=== PATIENT | female | born 1960 | race Caucasian/White ===

== ENCOUNTER → 2020-12-10 | Day surgery (SDC) | payer OTHER ==
[2020-12-09 12:21] VITALS: BP 127/89
[~2020-12-10] VITALS: Ht 157.5 cm; Wt 145.0 kg
[~2020-12-10] MED LIST: AMLO-186 PO; AZEL6DRO2 OP; FAMO20TA5 PO; FERR240T11 PO; FEXO180T16 PO; FLUT15.812 NS; LEVO5TAB29 PO; LIDOCAINE 2% PF 5 ML VIAL. ONE; MELA10TA2 PO; PROPOFOL 10 MG/ML (20ML) VIAL. IV ONE; ROPI3TAB PO; SERT50TA PO; SUCR1TAB PO; TIZA4TAB2 PO; TOPI100T42 PO; ZOLP3.5T2 SL
[2020-12-10] MEDS: IV RINGERS,LACTATED 1000ML 1,000 ML IV SCH ×2 (08:00→08:01)
[2020-12-10 09:55] VITALS: BP 103/59
--- NOTE | 2020-12-10 10:16 | PREOP HP ---
DATE OF SERVICE: 12/10/2020 REQUESTING PHYSICIAN: Dr. Bill Garcia. PRIMARY CARE PHYSICIAN: Dr. Bill Garcia. REASON FOR PROCEDURE: History of polyps. HISTORY OF PRESENT ILLNESS: This is a 60-year-old female who presents for colonoscopy and upper endoscopy. She has reflux and has a history of polyps. PAST MEDICAL HISTORY: Reflux and polyps. FAMILY HISTORY: Negative for colon cancer. SOCIAL HISTORY: No tobacco, alcohol or IV drug abuse. MEDICATIONS: MAR reviewed. REVIEW OF SYSTEMS: Review of 13-point review of systems was done, it is positive as per HPI and otherwise negative. PHYSICAL EXAMINATION: VITAL SIGNS: She is afebrile and her vital signs are stable. GENERAL: She is a well-developed, well-nourished female in no apparent distress. HEENT: Oropharynx is clear. CARDIOVASCULAR: S1, S2. LUNGS: Clear. ABDOMEN: Normoactive bowel sounds, soft, nontender, nondistended. EXTREMITIES: No edema. NEUROLOGIC: Awake, alert, oriented x 3. ASSESSMENT AND PLAN: 1. Heartburn. 2. Colorectal cancer screening for history of colon polyps. [facility]IS[facility] [place]: Munira TID: [id number]
--- NOTE | 2020-12-11 17:11 | PATHOLOGY ---
[facility] Accession Number: [id number] . 01 Material submitted: . PART A: small bowel - SMALL BOWEL BIOPSY PART B: stomach - ANTRAL GASTRIC AND BODY BIOPSY PART C: esophagus - DISTAL ESOPHAGUS BIOPSY. Modifiers: distal . 01 Clinical history: . SCREENING,HX OF POLYPS GERD EGD . 02 Diagnosis: A. Small bowel biopsies: - No significant pathologic abnormalities. . B. Gastric biopsies, gastric antrum and gastric body: - Congestion and focal slight chronic inflammation. . C. Esophageal biopsies, distal esophagus: - Reflux esophagitis with focal ulceration and acute inflammation. [facility] 12/11/2020 1408 Local . 02 Comment: Sections of the small bowel biopsy reveal segments of duodenal and small intestine mucosa. Where best oriented, the mucosal villi show no sprue-like changes or significant inflammatory changes. . Sections of the gastric biopsy reveal segments of gastric antral and gastric body mucosa showing congestion and focal slight chronic inflammation. There is also a small segment of duodenal mucosa present. A properly controlled immunoperoxidase stain for Helicobacter is negative for Helicobacter organisms. . Sections of the distal esophageal biopsy reveal segments of focally tangentially oriented hyperplastic squamous esophageal mucosa showing chronic inflammation. There is a biopsy segment consisting of acute inflammatory exudate and granulation tissue consistent with ulcer. There is also a segment of gastric mucosa showing congestion and mild chronic inflammation. The findings are consistent with reflux esophagitis with ulceration. There is no evidence of Morales's change, dysplasia, or malignancy. ([facility]/db; 12/11/2020) . Special stain performed: Immunoperoxidase stain for Helicobacter on B1 . 02 Electronically signed: . Moshe Landrum MD, Pathologist NPI- [id number] . 01 Gross description: . A. The specimen is received in formalin, labeled "Saller, Sheri, small bowel biopsy" received as multiple fragments of soft ceja tissue measuring up to 0.3 cm. Entirely submitted in A1. . B. The specimen is received in formalin, labeled "Saller, Sheri, antral biopsy gastric and body" received as multiple fragments of soft ceja tissue measuring up to 0.3 cm. Entirely submitted in B1. . C. The specimen is received in formalin, labeled "Saller, Sheri, distal esophagus biopsy" received as multiple fragments of soft ceja tissue measuring up to 0.3 cm. Entirely submitted in C1. ([facility]; 12/10/20) [facility] 12/11/2020 1409 Local . 02 Pathologist provided ICD-10: K29.50, K21.00, K22.10, K20.90 . 02 CPT . 576269, [id number], [id number], [id number] Specimen Comment: A courtesy copy of this report has been sent to [phone] Specimen Comment: [id number] Specimen Comment: Report sent to / DR HOFFMANN Performed at: 01 [facility] [address], [place] [id number] MD Mayank Keating MD Phone: [phone] Performed at: 02 [facility] [address] [place], [place] [id number] MD Moshe Landrum MD Phone: [phone]
== END | disposition home or self-care (01) ==
LOC: SURG 09:06
PROVIDERS: ATTEND Internal Medicine Gastroenterology
DX: Z12.11 Encounter for screening for malignant neoplasm of colon (principal); R12 Heartburn; K29.50 Unspecified chronic gastritis without bleeding; K64.0 First degree hemorrhoids; K21.00 Gastro-esophageal reflux disease with esophagitis, without bleeding; K44.9 Diaphragmatic hernia without obstruction or gangrene; K31.89 Other diseases of stomach and duodenum; I10 Essential (primary) hypertension; M19.90 Unspecified osteoarthritis, unspecified site; M81.0 Age-related osteoporosis without current pathological fracture; Z86.010 Personal history of colon polyps; Z90.710 Acquired absence of both cervix and uterus; Z98.890 Other specified postprocedural states; Z79.899 Other long term (current) drug therapy; Z88.8 Allergy status to other drugs, medicaments and biological substances
CPT/HCPCS: 43239; 45378; 88305; 88342; J2704